=== PATIENT | female | born 1985 | race Caucasian/White ===

== ENCOUNTER 2016-12-15 22:00 | Emergency (ER) | payer BC ==
[~2016-12-15] VITALS: Ht 165.1 cm; Wt 59.0 kg
--- NOTE | 2016-12-15 22:04 | NUR ---
PT CAME FROM HOME C/O R FLANK PAIN X 1 WEEK PER PT "I BENT OVER ABOUT A WEEK AGO TO PICK MY DOG UP AND HAVE HAD THIS PAIN SINCE" BREATHING EVEN/UNLABOERD, A/O X 4, NAD NOTED AT THIS TIME
[2016-12-15 23:57] VITALS: BP 118/63
== END 2016-12-15 23:57 | disposition home or self-care (01) ==
LOC: ER 22:07
DX: R10.11 Right upper quadrant pain (principal)
CPT/HCPCS: 76705; 99284; A4606; Z7610